=== PATIENT | female | born 1985 | race Two or more races ===

== ENCOUNTER 2016-04-08 21:56 | Emergency (ER) | payer SELFPAY ==
[~2016-04-08] VITALS: Ht 154.9 cm; Wt 83.0 kg
[2016-04-08 22:09] VITALS: BP 163/111
[2016-04-08] MEDS ORDERED: cloNIDine HCL 0.1 MG TAB PO ONE (22:15)
[2016-04-08 22:46] LABS: Basophils # (auto) 0.2 uL; Basophils % (auto) 1.2 % (0.0-2.0); Eosinophils # (auto) 0.1 uL; Hematocrit 45.8 % (36.0-46.0); Lymphocytes # (auto) 2.6 uL; Lymphocytes % (auto) 20.2 % (10.0-50.0); Mean Corpuscular Hemoglobin 28.8 pg (28.0-32.0); Mean Corpuscular Hgb Conc. 32.8 g/dL (32.0-36.0); Mean Corpuscular Volume 87.9 fL (80.0-100.0); Mean Platelet Volume 8.3 fL (7.4-10.4); Monocytes # (auto) 0.7 uL; Monocytes % (auto) 5.5 % (0.0-12.0); Neutrophils # (auto) 9.3 uL; Neutrophils % (auto) 72.1 % (37.0-80.0); Platelet Count (auto) 318 10^3/uL (140-450); Red Cell Distribution Width 14.1 % (11.6-16.0); White Blood Cell 12.9 10^3/uL (4.4-10.8)
[2016-04-08 22:47] LABS: Urine Bilirubin Negative (Negative); Urine Blood TRACE /uL (Negative); Urine Color Yellow (Yellow); Urine Glucose Normal (Normal); Urine Ketone Negative (Negative); Urine Mucus FEW (None Seen); Urine RBC 16 /hpf (0 - 4); Urine Squamous Epithelial Cell FEW /hpf (<5); Urine Urobilinogen Normal (Negative)
[2016-04-08 22:50] LABS: Urine Nitrite POSITIVE (Negative)
[2016-04-08 23:01] LABS: INR 1.01 (0.9-1.15); Partial Thromboplastin Time 26.5 sec (22.64-33.71); Prothrombin Time 10.4 sec (9.37-12.3)
[2016-04-08 23:03] LABS: BUN/Creatinine Ratio 11.1; Calcium 8.7 mg/dL (8.5-10.1); Potassium 3.9 mmol/L (3.5-5.1)
[2016-04-08 23:06] LABS: Bilirubin, Total 0.3 mg/dL (0.2-1.0); Total Protein 8.2 g/dL (6.4-8.2)
== END 2016-04-09 01:51 | disposition left against medical advice (07) ==
LOC: ER 21:58
DX: R51 Headache (principal); R42 Dizziness and giddiness; H53.8 Other visual disturbances; Z53.21 Procedure and treatment not carried out due to patient leaving prior to being seen by health care provider
CPT/HCPCS: 36415; 80053; 81001; 81025; 85025; 85610; 85730

== ENCOUNTER 2017-04-12 08:23 | Emergency (ER) | payer OTHER ==
[~2017-04-12] VITALS: Ht 157.5 cm; Wt 88.5 kg
[2017-04-12 15:43] VITALS: BP 125/107
[2017-04-12] MEDS ORDERED: ALBUTEROL SULF 2.5 MG/0.5ML(0.5%) NEB SOLN NEB ONE (19:15)
[2017-04-12] MEDS ORDERED: IPRATROPIUM BROM 0.5 MG/2.5ML INH SOL NEB ONE (19:15)
[2017-04-12] MEDS ORDERED: LEVOFLOXACIN 500 MG TAB PO ONE (19:15)
[2017-04-12] MEDS ORDERED: methylPREDNISolone SOD SUCC 125 MG/2 ML VL IM ONE (19:15)
== END 2017-04-12 20:11 | disposition home or self-care (01) ==
LOC: ER 08:23
DX: J45.909 Unspecified asthma, uncomplicated (principal); I10 Essential (primary) hypertension; G43.909 Migraine, unspecified, not intractable, without status migrainosus
CPT/HCPCS: 94640; 96372; 99283; J2930

== ENCOUNTER 2021-05-10 15:06 | Emergency (ER) | payer MEDICAID, OTHER ==
[~2021-05-10] VITALS: Ht 157.5 cm; Wt 84.8 kg
[2021-05-10 16:20] LABS: Basophils # (auto) 0 10 ^3/uL (0-0.2); Basophils % (auto) 0.3 % (0.0-2.0); Eosinophils # (auto) 0.1 10 ^3/uL (0-0.8); Eosinophils % (auto) 0.5 % (0.0-7.0); Hemoglobin 13.5 g/dL (12.2-16.2); Lymphocytes # (auto) 2.1 10 ^3/uL (0.4-5.4); Lymphocytes % (auto) 17.9 % (10.0-50.0); Mean Corpuscular Hemoglobin 29.7 pg (28.0-32.0); Mean Corpuscular Hgb Conc. 34.6 g/dL (32.0-36.0); Mean Corpuscular Volume 85.9 fL (80.0-100.0); Monocytes # (auto) 0.5 10 ^3/uL (0-1.3); Monocytes % (auto) 4.2 % (0.0-12.0); Neutrophils # (auto) 8.9 10 ^3/uL (1.6-8.6); Neutrophils % (auto) 77.1 % (37.0-80.0); Nucleated Red Blood Cells % 0.1 %; Red Blood Cells 4.54 10^6/uL (4.0-5.20); Red Cell Distribution Width 14.1 % (11.8-14.3); White Blood Cell 11.5 10^3/uL (4.4-10.8)
[2021-05-10 16:36] LABS: Albumin 3.7 g/dL (3.4-5.0); Potassium 3.4 mmol/L (3.5-5.1)
[2021-05-10 16:41] LABS: BUN/Creatinine Ratio 15.7; Bilirubin, Total 0.4 mg/dL (0.2-1.0); Total Protein 7.8 g/dL (6.4-8.2)
[2021-05-10] MEDS ORDERED: IOHEXOL 350 MG/ML 100ML IJ ONE (17:32)
[2021-05-10] MEDS ORDERED: POTASSIUM EFFERVESENT TAB 25 MEQ PO ONE (19:00)
[2021-05-10 23:00] VITALS: BP 157/96
== END 2021-05-10 23:29 | disposition home or self-care (01) ==
LOC: ER 15:12
DX: R93.0 Abnormal findings on diagnostic imaging of skull and head, not elsewhere classified (principal); M79.89 Other specified soft tissue disorders; J45.909 Unspecified asthma, uncomplicated; E11.9 Type 2 diabetes mellitus without complications; I10 Essential (primary) hypertension
CPT/HCPCS: 36415; 71275; 80053; 84484; 85025; 85379; 93005; 93970; 99285; Q9967

== ENCOUNTER → 2024-03-16 | Outpatient (CLI) | payer MEDICAID ==
[~2024-03-16] VITALS: Ht 162.6 cm; Wt 101.2 kg
[2024-03-16] MEDS: REGADENOSON 0.4 MG/5 ML SYRG IV ONE ×2 (10:31→10:33)
--- NOTE | 2024-03-17 09:27 | DVHSR ---
APPROVED REPORT Exam: Nuclear Stress Test Indication: chest pain BMI: 0 Medical History Medical History: HTN, DM, Sleep Apnea Stress Test Details Stress Test: Pharmacologic stress testing performed using 0.4 mg of regadenoson per 5 mL given IV ov er 10 seconds. HR Resting HR: 81 bpmMax Heart Rate (APMHR): 180.866794 bpm Max HR Achieved: 113 bpmTarget HR (85% APMHR): 153.988668 bpm % of APMHR: 62.78 Recovery HR: 99 bpm BP Resting BP: 146/92 mmHg Recovery BP: 144/94 mmHg ECG Resting ECG: Sinus Rhythm Clinical Reason for Termination: Completed protocol Stress ECG Conclusion no severe stress induced ishcemia normal lvef 54% NM EXAM: Myocardial Perfusion REST/STRESS Imaging Protocol: Rest Tc-99m/Stress Tc-99m 1 day Resting Data Rest SPECT myocardial perfusion imaging was performed in supine position 60 minutes following the int ravenous injection of 14 mCi of Tc-99m Sestamibi. Time of rest injection: 0925 Time of rest imagin Administration Route: IV Administration Site: Right AC Pharmacologic Stress Pharmacologic stress test was performed by injecting Regadenoson 0.4 mg IV push followed by the intra venous injection of 32 mCi of Tc-99m Sestamibi. Time of stress injection: 1033 Time of stress imagin Administration Route: IV Administration Site: Right AC The images were gated to evaluate regional wall motion and calculate left ventricular ejection fracti on. Stress only was performed in the Supine position. Nuclear Conclusion Clinical Findings: negative for ischemia Nuclear Findings: negative for ischemia no severe stress induced ishcemia normal lvef 54%
== END | disposition home or self-care (01) ==
LOC: XYW 09:08
PROVIDERS: ATTEND Internal Medicine
DX: R07.9 Chest pain, unspecified (principal); R06.02 Shortness of breath; I10 Essential (primary) hypertension; G47.30 Sleep apnea, unspecified; E11.9 Type 2 diabetes mellitus without complications
CPT/HCPCS: 78452; 93017; A9500; J2785

== ENCOUNTER 2025-03-16 23:59 | Emergency (ER) | payer MEDICAID ==
[~2025-03-16] VITALS: Ht 160 cm; Wt 100.0 kg
--- NOTE | 2025-03-17 00:42 | ED.PDOC ---
SOB-HPI HPI Comments 39-year-old female who came to ER for shortness of breath. Patient has history of hypertension and asthma. States for the past few days she has been having productive cough, dizziness, shortness of breath, chest tightness and wheezing. Inhalers taken offered slightly relief. No fever noted. Was having headaches and noted that her blood pressure was elevated at home. Patient is saturating 95% room air. Blood pressure upon arrival was 182/112 mm Hg Chief Complaint: Shortness of Breath Time Seen by MD: 00:41 Primary Care Provider: CORRINE Reviewed notes: Nurses Notes Information Source: Patient Mode of Arrival: Ambulatory Past Medical History PAST MEDICAL HISTORY: Asthma, DM, HTN Surgical History: Denies all surgeries NIGHT SUPERVISOR History: No Pertinent NIGHT SUPERVISOR History Family History Family History: Reviewed,noncontributory to illness Social History Smoker: Non-Smoker Alcohol: Denies ETOH Use Drugs: Denies Drug Use Lives In: Home Constitutional: denies: chills, diaphoresis, fatigue, fever, malaise, sweats, weakness, others EENTM: denies: blurred vision, double vision, ear bleeding, ear discharge, ear drainage, ear pain, ear ringing, eye pain, eye redness, hearing loss, mouth pain, mouth swelling, nasal discharge, nose bleeding, nose congestion, nose pain, photophobia, tearing, throat pain, throat swelling, voice changes, others Respiratory: reports: cough, SOB at rest, shortness of breath, SOB with excertion, wheezing; denies: hemoptysis, orthopnea, stridor, others Cardiovascular: reports: chest pain, dizzy spells; denies: diaphoresis, Dyspnea on exertion, edema, irregular heart beat, left arm pain, lightheadedness, palpitations, PND, syncope, others Gastrointestinal: denies: abdomen distended, abdominal pain, blood streaked bowels, constipated, diarrhea, dysphagia, difficulty swallowing, hematemesis, melena, nausea, poor appetite, poor fluid intake, rectal bleeding, rectal pain, vomiting, others Genitourinary: denies: abnormal vagina bleeding, burning, dyspareunia, dysuria, flank pain, frequency, hematuria, incontinence, pain, , vagina discharge, urgency, others Neurological: denies: dizziness, fainting, headache, left sided numbness, left sided weakness, numbness, paresthesia, pre-existing deficit, right sided numbness, right sided weakness, seizure, speech problems, tingling, tremors, weakness, others Musculoskeletal: denies: back pain, gout, joint pain, joint swelling, muscle pain, muscle stiffness, neck pain, others Integumetry: denies: bruises, change in color, change in hair/nails, dryness, laceration, lesions, lumps, rash, wounds, others Allergic/Immunocompromised: denies: Difficulty Healing, Frequent Infections, Hives, Itching, others Hematologic/Lymphatic: denies: anemia, blood clots, easy bleeding, easy bruising, swollen glands, others Endocrine: denies: excessive hunger, excessive sweating, excessive thirst, excessive urination, flushing, intolerance to cold, intolerance to heat, unexplained weight gain, unexplained weight loss, others Psychiatric: denies: anxiety, bipolar disorder, depression, hopeless, panic disorder, schizophrenia, sleepless, suicidal, others Physical Exam General Appearance: No Apparent Distress, Normal HEENT: Normal ENT Inspection, Pharynx Normal, TMs Normal Neck: Full Range of Motion, Non-Tender, Normal, Normal Inspection Respiratory: Chest Non-Tender, Lungs Clear, No Accessory Muscle Use, No Respiratory Distress, Normal Breath Sounds Cardiovascular: No Edema, No JVD, No Murmur, No Gallop, Normal Peripheral Pulses, Regular Rate/Rhythm Breast Exam: Deferred Gastrointestinal: No Organomegaly, Non Tender, No Pulsatile Mass, Normal Bowel Sounds, Soft Genitalia: Deferred Pelvic: Deferred Rectal: Deferred Extremities: No calf tenderness, Normal capillary refill, Normal inspection, Normal range of motion, Non-tender, No pedal edema Musculoskeletal : Apperance: Normal Neurologic: Alert, booking supervisor II-XII nml as Tested, No Motor Deficits, Normal Affect, Normal Mood, No Sensory Deficits Cerebellar Function: Normal Reflexes: Normal Skin: Dry, Normal Color, Warm Lymphatic: No Adenopathy Was a procedure done? Was a procedure done?: No Differential Dx Differential Diagnosis: Asthma, Bronchitis, Pneumonia, Respiratory Distress, URI X-Ray, Labs, Meds, VS Vital Signs Date Time Temp Pulse Resp B/P (MAP) Pulse Ox O2 Delivery O2 Flow Rate FiO2 03/17/25 02:30 98.4 102 16 161/102 (121) 96 98.4 03/17/25 02:07 98.2 109 16 175/106 (129) 96 98.2 03/17/25 01:38 111 96 Room Air* 0 21 03/17/25 01:34 97.9 111 96 174/100 (124) 96 97.9 03/17/25 00:53 16 98 Room Air* 0 21 03/17/25 00:00 98.3 115 20 182/112 95 98.3 Lab Test 03/17/25 01:29 03/17/25 00:35 Range/Units Troponin I High Sensitivity 3 L < 3 L </=34 ng/L White Blood Count 10.3 4.4-10.8 10^3/uL Red Blood Count 5.20 4.0-5.20 10^6/uL Hemoglobin 15.6 12.2-16.2 g/dL Hematocrit 44.9 36.0-46.0 % Mean Corpuscular Volume 86.4 80.0-100.0 fL Mean Corpuscular Hemoglobin 29.9 28.0-32.0 pg Mean Corpuscular Hemoglobin Concent 34.6 32.0-36.0 g/dL Red Cell Distribution Width 13.8 11.8-14.3 % Platelet Count 308 140-450 10^3/uL Mean Platelet Volume 8.0 6.9-10.8 fL Neutrophils (%) (Auto) 66.3 37.0-80.0 % Lymphocytes (%) (Auto) 24.3 10.0-50.0 % Monocytes (%) (Auto) 6.0 0.0-12.0 % Eosinophils (%) (Auto) 2.9 0.0-7.0 % Basophils (%) (Auto) 0.5 0.0-2.0 % Neutrophils # (Auto) 6.8 1.6-8.6 10 ^3/uL Lymphocytes # (Auto) 2.5 0.4-5.4 10 ^3/uL Monocytes # (Auto) 0.6 0-1.3 10 ^3/uL Eosinophils # (Auto) 0.3 0-0.8 10 ^3/uL Basophils # (Auto) 0.1 0-0.2 10 ^3/uL Nucleated Red Blood Cells 0.0 % Sodium Level 141 136-145 mmol/L Potassium Level 3.6 3.5-5.1 mmol/L Chloride Level 102 98-107 mmol/L Carbon Dioxide Level 29 20-31 mmol/L Anion Gap 10 5-15 Blood Urea Nitrogen 9 9-23 mg/dL Creatinine 0.82 0.550-1.02 mg/dL Glomerular Filtration Rate Calc 92 >90 mL/min BUN/Creatinine Ratio 11.0 10.0-20.0 Serum Glucose 108 H 74-106 mg/dL Calcium Level 9.1 8.7-10.4 mg/dL Total Bilirubin 0.4 0.2-1.0 mg/dL Aspartate Amino Transferase (AST) 29 13-40 U/L Alanine Aminotransferase (ALT) 48 H 7-40 U/L Alkaline Phosphatase 81 46-116 U/L B-Type Natriuretic Peptide 1.35 0-100 pg/mL Total Protein 7.9 5.7-8.2 g/dL Albumin 4.5 3.2-4.8 g/dL Current Medications Medications (Trade) Dose Ordered Sig/Nithin Route Start Time Stop Time Status Last Admin Albuterol (Ventolin Medneb) 5 mg ONCE ONCE NEB 03/17/25 00:45 03/17/25 01:21 DC 03/17/25 00:53 Prednisone 40 mg ONCE ONCE PO 03/17/25 00:45 03/17/25 01:21 DC 03/17/25 01:33 CHEST RADIOGRAPH INDICATION: SOB TECHNIQUE: 1 view COMPARISON: CT chest 05/10/2021 FINDINGS: Lines and Tubes: None. Lungs/Pleura: No focal consolidation, pleural effusion or pneumothorax. Cardiomediastinum: Unremarkable. Other: No acute osseous abnormality. IMPRESSION: 1. No acute cardiopulmonary abnormality. Time of 1ST Reevaluation: 00:39 Reevaluation 1ST: Unchanged Patient Education/Counseling: Diagnosis, Treatment Family Education/Counseling: Diagnosis, Treatment SEPSIS Sepsis Screen Date sepsis recognized/suspect: Mar 17, 2025 Time Sepsis recognized/suspect: 0004 Recent Procedure: No On Antibiotic Therapy: No Respiratory Rate >20: No Heart Rate >90: No Temp<36 C (96.8 F) or >38.3 C: No SBP <90 or MAP <65 mmHG: No New Acute Mental Status Change: No Is the patient on CPAP, BIPAP,: No Physician Orders Electrocardigram (03/17/25 00:19) Chest Xray 1 View (03/17/25 00:19) Vital Signs Date Time Temp Pulse Resp B/P (MAP) Pulse Ox O2 Delivery O2 Flow Rate FiO2 03/17/25 02:30 98.4 102 16 161/102 (121) 96 98.4 03/17/25 02:07 98.2 109 16 175/106 (129) 96 98.2 03/17/25 01:38 111 96 Room Air* 0 21 03/17/25 01:34 97.9 111 96 174/100 (124) 96 97.9 03/17/25 00:53 16 98 Room Air* 0 21 03/17/25 00:00 98.3 115 20 182/112 95 98.3 Laboratory Tests Test 03/17/25 00:35 White Blood Count 10.3 10^3/uL (4.4-10.8) Medications Medications Dose Ordered Sig/Nithin Route Start Time Stop Time Status Last Admin Dose Admin Albuterol 5 mg ONCE ONCE NEB 03/17/25 00:45 03/17/25 01:21 DC 03/17/25 00:53 Prednisone 40 mg ONCE ONCE PO 03/17/25 00:45 03/17/25 01:21 DC 03/17/25 01:33 Departure 1 Departure Time of Disposition: 02:00 Impression: Primary Impression: Shortness of breath Disposition: 01 HOME / SELF CARE / HOMELESS Condition: Stable e-Prescriptions Prednisone (Prednisone) 20 Mg Tab 20 MG PO BID for 5 Days, #10 TAB Prov: OLEKSANDR ABDUL MD 03/17/25 Albuterol Sulfate (Albuterol Sulfate Hfa) 108 Mcg/Act Aer 108 MCG IN Q6HP PRN, #1 AER Prov: OLEKSANDR ABDUL MD 03/17/25 Discharged With: Self Critical Care Note Critical Care Time?: No Stability Stability form required: No Heart Score Heart Score: Heart Score Response (Comments) Value History N/A 0 EKG N/A 0 Age N/A 0 Risk Factors N/A 0 Troponin N/A 0 Total 0 I personally scribed for OLEKSANDR ABDUL MD ([email or web address]) on 03/17/25 at 00:42. Electronically submitted by Laith Oliver ([facility]). I personally scribed for OLEKSANDR ABDUL MD ([email or web address]) on 03/17/25 at 01:50. Electronically submitted by Laith Oliver ([email or web address]). OLEKSANDR ABDUL MD Mar 17, 2025 00:42
[2025-03-17 00:43] LABS: Hematocrit 44.9 % (36.0-46.0); Hemoglobin 15.6 g/dL (12.2-16.2); Mean Corpuscular Hemoglobin 29.9 pg (28.0-32.0); Mean Corpuscular Volume 86.4 fL (80.0-100.0); Nucleated Red Blood Cells % 0.0 %
[2025-03-17] MEDS: ALBUTEROL SULF 2.5 MG/0.5ML(0.5%) NEB SOLN NEB ONE (00:53)
[2025-03-17 01:02] LABS: Albumin 4.5 g/dL (3.2-4.8); Alkaline Phosphatase 81 U/L (46-116); Anion Gap 10 (5-15); BUN/Creatinine Ratio 11.0 (10.0-20.0); Bilirubin, Total 0.4 mg/dL (0.2-1.0); Calcium 9.1 mg/dL (8.7-10.4); Carbon Dioxide 29 mmol/L (20-31); Chloride 102 mmol/L (98-107); Potassium 3.6 mmol/L (3.5-5.1); Sodium 141 mmol/L (136-145); Total Protein 7.9 g/dL (5.7-8.2)
--- NOTE | 2025-03-17 01:05 | DVH ---
CHEST RADIOGRAPH INDICATION: SOB TECHNIQUE: 1 view COMPARISON: CT chest 05/10/2021 FINDINGS: Lines and Tubes: None. Lungs/Pleura: No focal consolidation, pleural effusion or pneumothorax. Cardiomediastinum: Unremarkable. Other: No acute osseous abnormality. IMPRESSION: 1. No acute cardiopulmonary abnormality.
[2025-03-17 01:09] LABS: Alanine Aminotransferase 48 U/L (7-40); Blood Urea Nitrogen 9 mg/dL (9-23); Glucose 108 mg/dL (74-106)
[2025-03-17] MEDS: predniSONE 20 MG TAB PO ONE (01:33)
[2025-03-17 01:38] VITALS: PULSE 111; O2SAT 96
[2025-03-17] MEDS ORDERED: PRED20TA2 PO (02:11)
[2025-03-17] MEDS ORDERED: ALBU108A5 IN (02:11)
[2025-03-17 02:30] VITALS: BP 161/102; PULSE 102; RESP 16; TEMP 98.4; O2SAT 96
== END 2025-03-17 02:45 | disposition home or self-care (01) ==
LOC: ER 23:59
DX: R06.02 Shortness of breath (principal); E11.9 Type 2 diabetes mellitus without complications; I10 Essential (primary) hypertension; J45.909 Unspecified asthma, uncomplicated; Z79.899 Other long term (current) drug therapy
CPT/HCPCS: 36415; 71045; 80053; 83880; 84484; 85025; 94640; 99285; J7512